=== PATIENT | male | born 1990 | race Caucasian/White ===

== ENCOUNTER 2020-09-28 10:39 | Outpatient (REF) | payer OTHER, SELFPAY | END 2020-09-28 10:40 | disposition home or self-care (01) | LOC: HO.LAB 10:39 | PROVIDERS: Visit Provider Internal Medicine | DX: Z20.828 Contact with and (suspected) exposure to other viral communicable diseases (principal) | CPT/HCPCS: C9803; U0003 ==

== ENCOUNTER 2021-08-27 14:18 | Outpatient (REF) | payer OTHER, SELFPAY ==
--- NOTE | ~2021-08-27 | XR_ITS ---
EXAMINATION: XR SHOULDER, RIGHT CLINICAL INFORMATION: Pain COMPARISON: None TECHNIQUE: AP external rotation, Grashey, scapular Y, and axillary views of the right shoulder. FINDINGS: Visualized portion of the proximal right humerus demonstrate no fracture. Humeral head demonstrates good articulation with the glenoid fossa. Acromioclavicular joint is normal. Visualized right-sided ribs and lung parenchyma are unremarkable. XR/XR shoulder RT min 2V IMPRESSION: Unremarkable radiographs of the right shoulder.
== END 2021-08-27 14:19 | disposition home or self-care (01) ==
LOC: HO.XRAY 14:18
PROVIDERS: PCP Family Medicine; Visit Provider Family Medicine
DX: M25.511 Pain in right shoulder (principal)
CPT/HCPCS: 73030

== ENCOUNTER 2021-12-08 13:15 | Emergency (ER) | payer OTHER, SELFPAY ==
[2021-12-08 14:05] VITALS: BP 129/67; PULSE 84; RESP 17; TEMP 37.2; O2SAT 96; BMI 21.8
== END 2021-12-08 14:41 | disposition left against medical advice (07) ==
PROVIDERS: Emergency Provider Emergency Medicine; PCP Family Medicine
DX: R10.9 Unspecified abdominal pain (principal)
CPT/HCPCS: 99281; 99282; 99283; 99284

== ENCOUNTER 2022-12-18 10:31 | Outpatient (REF) | payer OTHER, SELFPAY | END 2022-12-18 10:32 | disposition home or self-care (01) | LOC: HO.LAB 10:31 | PROVIDERS: Visit Provider Family Medicine | DX: Z13.89 Encounter for screening for other disorder (principal) ==

== ENCOUNTER 2022-12-18 14:16 | Outpatient (REF) | payer OTHER, SELFPAY ==
[2022-12-18 14:37] LABS: Appearance Urine Cloudy; Color Urine Yellow; Glucose Urine UA Negative (Negative); Leukocyte Esterase Urine Moderate (2+) (Negative); Nitrite Urine Negative (Negative); UMIC TRIGGER UA YES; Urine Blood Negative (Negative); Urine Ketones Negative (Negative); Urine Protein Negative (Neg-Trace)
[2022-12-18 14:42] LABS: Bacteria Urine None Seen (None Seen); Hyaline Casts Urine 0-2 /LPF (0-2); RBC Urine 0-2 /HPF (0-2); Squamous Epithelial Cell Urine 0-2 /HPF (0-2); WBC Urine 21-50 /HPF (0-5)
== END 2022-12-18 14:17 | disposition home or self-care (01) ==
LOC: HO.LNP 14:16
PROVIDERS: Visit Provider Family Medicine
DX: R30.0 Dysuria (principal)
CPT/HCPCS: 81001; 87086

== ENCOUNTER 2024-11-27 11:22 | Outpatient (AMB) | payer OTHER, SELFPAY ==
--- NOTE | 2024-11-27 11:36 | A.OFFPC_ITS ---
Vital Signs 11/27/24 11:42 Height 5 ft 11 in Weight 163 lb 4 oz BMI 22.8 BP 100/60 Blood Pressure Location Rt brachial Position Sitting Respiration 14 Pulse 78 Pulse Source Pulse Oximeter Temp 97.9 F Temp Source Oral Pulse Oximetry (%) 98 Oxygen Delivery Method Room Air Intake Visit Reasons: discuss getting prescription shampoo Intake Note: pt is experiencing full body rash and would like a refill on medication and to re-establish care with pcp. pt would also like to get his testosterone levels checked Computerized Table Cutter Required: No Allergies No Known Allergies Allergy (Verified 11/27/24 11:39) Medication List - Last Reconciled 11/27/24 by Al Gloria MD ibuprofen 600 mg PO Q8H PRN 20 days ketoconazole 2% 1 appl topical DAILY 14 days ketoconazole 1% 1 appl topical 2XW 14 days Tobacco use date assessed: 09/09/21 HPI discuss getting prescription shampoo HPI Details 34 y/o male presents today with complain ts of a rash. Notes full body rash. He reports ketooconazole does help. He reports fatigue, hypersomnolence and does note he snores a lot. [facility] Surgical History History of tonsillectomy Family History Father Bipolar disorder Mother Tumor Sister No problems noted. Daughter No problems noted. Social History Housing: House Patient Tobacco Use Status: Current everyday Tobacco user e-Cigarette/Vaping Use: Never Used Second Hand Smoke Exposure: No service: No Current occupational status: employed Cognitive needs: No Hearing needs: No Vision needs: No Questionnaire PHQ-9 Over the last 2 weeks, how often have you been bothered by any of the following problems? 1. Little interest or pleasure in doing things: more than half the days 2. Feeling down, depressed, or hopeless: not at all 3. Trouble falling or staying asleep, or sleeping too much: nearly every day 4. Feeling tired or having little energy: nearly every day 5. Poor appetite or overeating: nearly every day 6. Feeling bad about yourself - or that you are a failure or have let yourself or your family down: not at all 7. Trouble concentrating on things, such as reading the newspaper or watching television: not at all 8. Moving or speaking so slowly that other people could have noticed. Or the opposite - being so fidgety or restless that you have been moving around a lot more than usual: not at all 9. Thoughts that you would be better off or of hurting yourself in some way: not at all Total score: 11 Source: Developed by Drs. Ceasar Jimenes, Guillermina Johnson, Randell Harper and colleagues, with an educational franklyn from [employer]. Thrive Questionnaire I am a: Patient What is your living situation today?: I have a steady place to live Within the past 12 months, did the food you bought not last and you didn't have the money to get more?: Never true Within the past 12 months, did you worry whether your food would run out before you got money to buy more?: Never true Do you have trouble paying for medicines?: No Do you have trouble getting transportation to medical appointments?: No Do you have trouble paying your heating and electricity bill?: No Do you have trouble taking care of your child, family member or friend?: No Do you have trouble with day-to-day activities such as bathing, preparing meals, shopping, managing finances, etc.?: No Are you currently unemployed and looking for a job?: No Are you interested in more education?: No Please select the resources that you would like help with: None Currently or been in a relationship where the following occur: No concerns reported THRIVE Score: 0 AUDIT C Alcohol Use Questionnaire (AUDIT-C) 1. How often do you have a drink containing alcohol?: Never Total Score: 0 MEGAN-7 AMB Questionnaire MEGAN-7 Date MEGAN - 7 assessed: 09/09/21 Feeling nervous, anxious, or on edge: 0 = Not at all Not being able to stop or control worryin = Not at all Worrying too much about different things: 0 = Not at all Trouble relaxin = More than half the days Being so restless that it is hard to sit still: 0 = Not at all Becoming easily annoyed or irritable: 0 = Not at all Feeling afraid as if something awful might happen: 0 = Not at all Total MEGAN-7 score (0-4 normal; 5-9 mild; 10-14 moderate; 15-21 severe): 2 Source: Developed by Drs. Ceasar Jimenes, Guillermina Johnson, Randell Harper and colleagues, with an educational franklyn from [employer]. Review of Systems Const Denies chills, Denies fatigue, Denies fever(s), Denies headache(s) and Denies weakness ENT Denies dizziness and Denies headache(s) Card Denies dyspnea Resp Denies cough, Denies dyspnea, Denies wheezing and Denies other (shortness of breath) Musc Denies numbness and Denies tingling Skin/Breast Reports rash Neuro Denies dizziness, Denies headache(s), Denies numbness, Denies tingling and Denies weakness Psych Denies anxiety and Denies depression Endo Denies fatigue Aller/Immun Denies wheezing Physical exam (Primary Care) Vital Signs: Last Vital Signs Temp 97.9 F 11/27/24 11:42 Pulse 78 11/27/24 11:42 Resp 14 11/27/24 11:42 BP 100/60 11/27/24 11:42 Pulse Ox 98 11/27/24 11:42 Oxygen Delivery Method Room Air 11/27/24 11:42 BMI result Body Mass Index 22.8 Tobacco/Smoking Status: Tobacco use Status Tobacco use date assessed 09/09/21 11/27/24 11:38 Patient Tobacco Use Status Current everyday Tobacco 11/27/24 11:38 e-Cigarette/Vaping Use Never Used 11/27/24 11:38 PHQ-9: PHQ-9 Score PHQ-9: Total score 11 11/27/24 11:49 Currently or been in a relationship where the following occur: No concerns reported Const General: well developed; No acute distress Nutritional Appearance: well nourished Orientation/consciousness: patient oriented x3 HENMT Head: Yes normocephalic and Yes atraumatic Eyes General: appearance normal, both eyes and all related structures Pupils: Equal, round and reactive pupils present EOM: EOMs intact bilaterally Resp Effort & Inspection: normal respiratory effort Neuro General: patient oriented x3 and gait normal Cranial nerves: Yes Equal, round and reactive pupils present Psych Affect: normal affect Coding Level of Care Code Est Pt Level 3 (62093) Diagnoses Rash R21 Fatigue R53.83 Hypersomnia G47.10 Assessment & Plan Assessment & Plan (1) Rash: Code(s): R21 - Rash and other nonspecific skin eruption Category: Medical Plan: Patient?has?used?ketoconazole?shampoo?along?with?a?ketoconazole topical?cream?for?regions?where?rash?is most?prominent. Will?send?script?for?these Advised?he?avoid?excess?moisture,?change?who?is?twice?a?day?until?controlled. Change?many?frequently (2) Fatigue: Code(s): R53.83 - Other fatigue Category: Medical Plan: Fatigue?and?daytime?sleepiness Worsened?at?night?snoring Referred?to?Sleep?Medicine Check?labs (3) Hypersomnia: Code(s): G47.10 - Hypersomnia, unspecified Category: Medical Plan: As?above,?referred?to?Sleep?Medicine Orders: Orders Comprehensive [place]. Panel Fast Today Z00.00 - Encounter for general adult medical examination without abnormal findings Lipid Panel Today Z00.00 - Encounter for general adult medical examination without abnormal findings Testosterone, Free/Total Today Z00.00 - Encounter for general adult medical examination without abnormal findings Complete Blood Count Auto Diff Today Z00.00 - Encounter for general adult medical examination without abnormal findings Microalbumin, Random (w Creat) Today I10 - Essential (primary) hypertension TSH reflex Free T4 Today Z00.00 - Encounter for general adult medical examination without abnormal findings UA and rflx microscopic Today Z00.00 - Encounter for general adult medical examination without abnormal findings Referrals Sleep Medicine Referral G47.10 - Hypersomnia, unspecified Medications: New ketoconazole 2% 1 appl topical DAILY 14 days 60 grams 0RF ketoconazole 1% 1 appl topical 2XW 14 days 125 mL 0RF
[2024-11-27 11:42] VITALS: BP 100/60; PULSE 78; RESP 14; TEMP 36.6; O2SAT 98; BMI 22.8
== END 2024-11-27 12:03 | disposition home or self-care (01) ==
PROVIDERS: PCP Family Medicine; Visit Provider Family Medicine
DX: R21 Rash and other nonspecific skin eruption (principal); R53.83 Other fatigue; G47.10 Hypersomnia, unspecified

== ENCOUNTER → 2024-11-27 11:22 | Outpatient (BNVA) | payer OTHER, SELFPAY | PROVIDERS: PCP Family Medicine; Visit Provider Family Medicine ==